=== PATIENT | male | born 1960 | race Two or more races ===

== ENCOUNTER → 2024-05-15 | Outpatient (CLI) | payer BC, OTHER, SELFPAY ==
[2024-05-15 08:39] LABS: Glucose Estimated Average 169 mg/dL (80-131); Hemoglobin A1C 7.5 % Hgb (4.8-6.0)
[2024-05-15 08:47] LABS: Anion Gap 5 (7-16); BUN/Creatinine Ratio 17 Ratio (12-20); Blood Urea Nitrogen 17 mg/dL (9-23); Carbon Dioxide 27.2 mMol/L (20.0-31.0); Cardiac Risk Estimate 3.5 RATIO (4.0-6.7); Chloride 102 mMol/L (98-107); Cholesterol 92 mg/dL (132-200); Glucose 155 mg/dL (74-106); HDL Cholesterol 26 mg/dL (40-60); LDL Cholesterol,Calculated 49 mg/dL (0-130); Osmolality,Calculated 272 (275-295); Sodium 134 mMol/L (136-145); Triglycerides 85 mg/dL (30-150); eGFR > 60 See Note
== END | disposition home or self-care (01) ==
PROVIDERS: PCP Physician Assistant; Referring Provider Internal Medicine Endocrinology, Diabetes & Metabolism; Visit Provider Internal Medicine Endocrinology, Diabetes & Metabolism
DX: E11.9 Type 2 diabetes mellitus without complications (principal)
CPT/HCPCS: 36415; 80048; 80061; 83036

== ENCOUNTER 2024-06-14 01:53 | Emergency (ER) | payer BC, OTHER, SELFPAY ==
[2024-06-14 01:54] VITALS: BMI 25.7
--- NOTE | 2024-06-14 01:55 | EKG_ITS ---
[facility] Test Date: 2024-06-14 Pat Name: LATRELL CEJA Department: Room: - Gender: Male Md Urologist: : 1960 Requested By: ED Temporary Provider Order Number: [id number] Reading MD: ED Temporary Provider Measurements Intervals [place] Rate: 80 P: 62 AL: 184 QRS: 85 QRSD: 100 T: 55 QT: 367 QTc: 425 Interpretive Statements SINUS RHYTHM WITH FREQUENT SUPRAVENTRICULAR PREMATURE COMPLEXES ABNORMAL RHYTHM ECG Compared to ECG 05/12/2020 13:13:50 No significant changes /store/S0/[id number].pdf
[2024-06-14 01:59] VITALS: BP 126/77; PULSE 61; RESP 18; TEMP 36.6; O2SAT 98
--- NOTE | 2024-06-14 02:48 | XR_ITS ---
Examination: PA chest single view TECHNIQUE: Upright PA chest single view Exam date and time: June 14, 2024 0257 hours INDICATIONS: Shortness of breath cardiac palpitations today. FINDINGS: Comparison May 28, 2021 Normal heart size No pneumonia or pulmonary edema IMPRESSION: No active disease
[2024-06-14 03:32] LABS: Basophils # (Auto) 0.1 Thou/mm3 (0.0-0.2); Basophils % (Auto) 1 % (0-2.5); Eosinophils # (Auto) 0.3 Thou/mm3 (0.0-0.5); Eosinophils % (Auto) 4 % (0-10); Hemoglobin 14.6 g/dL (13.5-16.0); Immature Granulocytes % (Auto) 0 % (0-0); Immature Granulocytes Auto 0.03 Thou/mm3 (0.00-0.00); Lymphocytes # (Auto) 1.6 Thou/mm3 (1.0-4.8); Lymphocytes % (Auto) 24 % (10-50); Mean Corpuscular HGB Conc 32.4 g/dl (31.0-37.0); Mean Corpuscular Hemoglobin 29.2 pg (25.0-35.0); Mean Corpuscular Volume 90 fL (80-100); Monocytes # (Auto) 0.6 Thou/mm3 (0.0-0.8); Monocytes % (Auto) 9 % (0-12); Neutrophils # (Auto) 4.1 Thou/mm3 (1.8-7.7); Neutrophils % (Auto) 61 % (37-80); Nucleated Red Blood Cell % 0 /100 WBC (0); Platelet Count 211 Thou/mm3 (140-440); RDW Standard Deviation 44.4 fL (35.1-43.9); White Blood Count 6.7 Thou/mm3 (3.8-10.6)
[2024-06-14 03:42] LABS: Amphetamine/Methamp Scrn,U Negative (Negative); Barbiturate Screen,Urine Negative (Negative); Benzodiazepines Screen,Urine Negative (Negative); Benzoylecgonine Screen, Ur Negative (Negative); Fentanyl Screen,Urine Negative (Negative); Opiate Screen,Urine Negative (Negative); THC Screen,Urine Negative (Negative)
[2024-06-14 03:49] LABS: B-Type Natriuretic Peptide < 20 pg/mL (0-100)
[2024-06-14 03:50] LABS: D-Dimer < 250 ng/mL (<600)
[2024-06-14 03:51] LABS: Alanine Aminotransferase 25 U/L (10-49); Albumin, Serum 4.7 gm/dL (3.4-4.8); Albumin/Globulin Ratio 2.4 (1.2-2.2); Alkaline Phosphatase 107 U/L (46-116); Anion Gap 5 (7-16); Aspartate Amino Transferase 16 U/L (0-34); BUN/Creatinine Ratio 18 Ratio (12-20); Bilirubin,Total 0.3 mg/dL (0.3-1.2); Blood Urea Nitrogen 22 mg/dL (9-23); Carbon Dioxide 28.8 mMol/L (20.0-31.0); Chloride 100 mMol/L (98-107); Creatinine (Component) 1.2 mg/dL (0.6-1.3); Estimated Creatinine Clearance 70.1 mL/min (>60); Glucose 199 mg/dL (74-106); Magnesium 1.9 mg/dL (1.6-2.6); Osmolality,Calculated 277 (275-295); Potassium 4.5 mMol/L (3.4-5.1); Sodium 134 mMol/L (136-145); Total Protein 6.7 gm/dL (5.7-8.2); Troponin I < 0.002 ng/mL (0.0-0.045); eGFR > 60 See Note
[2024-06-14 04:07] VITALS: BP 108/63; PULSE 78; RESP 17; TEMP 36.8; O2SAT 97
[2024-06-14 04:43] VITALS: RESP 18
--- NOTE | 2024-06-14 05:44 | PD.EDARRY ---
ED Arrhythmia Palp. RME/HPI General Chief Complaint: Arrhythmia/Palpitations Stated Complaint: PALPITATIONS,SOB Time Seen by Provider: 06/14/24 02:48 Arrival date/time: 06/14/24 01:53 64M with history of DM presents to ED with 2 days of intermittent heart palps and SOB. Patient denies weakness and CP. Patient had normal heart cath and stress test about 5 years ago. Limitations: no limitations Related Data Home Medications ?Medication ?Instructions ?Recorded ?Confirmed amitriptyline 50 mg tablet 50 mg PO QDAY 11/26/18 02/22/19 aspirin 81 mg chewable tablet 81 mg PO QDAY 11/26/18 02/22/19 atorvastatin 40 mg tablet 40 mg PO HS 11/26/18 02/22/19 cetirizine 10 mg tablet (Zyrtec) 10 mg PO QDAY 11/26/18 02/22/19 dapagliflozin propanediol 10 mg 10 mg PO QDAY 11/26/18 02/22/19 tablet (Farxiga) glipizide 10 mg tablet 5 mg PO DAILY 11/26/18 02/22/19 ibuprofen 600 mg tablet 600 mg PO Q6H PRN Pain 11/26/18 02/22/19 insulin glargine U-300 conc 300 30 unit subcut QDAY 11/26/18 02/22/19 unit/mL (1.5 mL) subcutaneous pen (Touvjo SoloStar U-300 Insulin) liraglutide 0.6 mg/0.1 mL (18 mg/3 1.2 units subcut DAILY 11/26/18 02/22/19 mL) subcutaneous pen injector (Victoza 2-Aly) lisinopril 10 mg tablet 10 mg PO QDAY 11/26/18 02/22/19 metformin 1,000 mg tablet 1,000 mg PO BID 11/26/18 02/22/19 rizatriptan 10 mg tablet 10 mg PO Q2H PRN Migraine Headache 11/26/18 02/22/19 topiramate 100 mg tablet 100 mg PO HS 11/26/18 02/22/19 albuterol sulfate 90 mcg/actuation 2 puff inhalation Q6H PRN Wheezing 12/18/18 02/22/19 aerosol inhaler beclomethasone dipropionate 80 1 puff inhalation BID PRN Wheezing 12/18/18 02/22/19 mcg/actuation HFA breath activated aerosol (Qvar RediHaler) tamsulosin 0.4 mg capsule 0.4 mg PO QDAY 02/22/19 02/22/19 Previous Rx's ?Medication ?Instructions ?Recorded hydrocodone 5 mg-acetaminophen 325 1 tab PO BID PRN pain #10 tabs 02/22/19 mg tablet ([place]) ibuprofen 800 mg tablet 800 mg PO TID PRN pain #30 tabs 02/22/19 Allergies Allergy/AdvReac Type Severity Reaction Status Date / Time No Known Allergies Allergy Verified 06/14/24 01:55 Review of Systems Review of Systems Systems Reviewed: All systems reviewed, normal except as documented Constitutional Constitutional: Reports system reviewed and no additional complaints, except as documented, Denies fever(s) and Denies headache(s) ENT Ears, Nose, Mouth, and Throat: Denies disequilibrium and Denies headache(s) Cardiovascular Cardiovascular: Reports system reviewed and no additional complaints, except as documented, Reports as per HPI, Denies chest pain, Reports dyspnea and Reports irregular heart rhythm Respiratory Respiratory: Reports system reviewed and no additional complaints, except as documented, Reports as per HPI, Denies cough and Reports dyspnea Gastrointestinal Gastrointestinal: Reports system reviewed and no additional complaints, except as documented, Denies abdominal pain, Denies nausea and Denies vomiting Neurologic Neurologic: Reports system reviewed and no additional complaints, except as documented, Denies confusion, Denies disequilibrium and Denies headache(s) Psychiatric Psychiatric: Denies confusion Past Medical History Past Medical History NEUROLOGIC: Positive Migraine (TAKES MEDS); Negative Neurological Disorders or Seizures CARDIAC: Positive Cardiac Disorders, Hypercholesterolemia and Hypertension; Negative Congestive Heart Failure RESPIRATORY: Positive Asthma and Sleep Apnea; Negative Chronic Obstructive Pulmonary Disease (COPD) GASTROINTESTINAL: Negative Gastrointestinal Disorders GENITOURINARY: Negative Genitourinary Disorders or Renal Disease MUSCULOSKELETAL: Positive Musculoskeletal Disorders, Arthritis and Degenerative Disk Disease ENDOCRINE: Positive Endocrine Disorders and Diabetes Mellitus Type 2; Negative Diabetes Mellitus Type 1 HEMATOLOGIC: Negative Blood Disorders OTHER HISTORY: Positive Hospitalization and Mumps; Negative Autoimmune Disease, Shingles or Falls Family History FAMILY HISTORY: Positive Family Psychiatric Problems, Family Cardiac Disorders and Family Surgery; Negative Family Respiratory Disorders, Family Gastrointestinal Problems, Family Cancer or Family Anesthesia Reaction Surgical History SURGICAL: Positive Angiogram, Arthroscopy and Vasectomy Social History SMOKING STATUS: Former smoker ED Exam General Limitations: Present no limitations General appearance: Present alert and in no apparent distress Head Head exam: Present atraumatic Eye Eye exam: Present normal appearance, PERRL and EOMI ENT ENT exam: Present normal exam, normal oropharynx and mucous membranes moist Neck Neck exam: Present normal inspection, full ROM and trachea midline Chest Chest inspection: Present normal inspection and symmetric chest wall rise Respiratory Respiratory exam: Present normal lung sounds bilaterally Cardiovascular Cardiovascular exam: Present regular rate, normal rhythm and normal heart sounds Abdominal Exam Abdominal exam: Present soft and normal bowel sounds Extremities Exam Extremities exam: Present normal inspection and full ROM Back Exam Back exam: Present normal inspection and full ROM Neurological Exam Neurological exam: Present alert, oriented X3 and CN II-XII intact Psychiatric Psychiatric exam: Present normal affect and normal mood Skin Skin exam: Present warm, dry, intact and normal color Course Quality Measures none Orders Category Date Time Status EKG (ED ONLY) *Do not use* NOW Care 06/14/24 01:56 Completed EKG (ED Only) Stat Exams 06/14/24 01:55 Draft XR chest 1V portable Stat Exams 06/14/24 02:48 Taken B-Type Natriuretic Peptide Stat Lab 06/14/24 03:18 Completed CBC Stat Lab 06/14/24 03:18 Completed Comprehensive Metabolic Panel Stat Lab 06/14/24 03:18 Completed D-Dimer Stat Lab 06/14/24 03:18 Completed Drug Screen,Urine Stat Lab 06/14/24 03:04 Completed Magnesium Stat Lab 06/14/24 03:18 Completed Troponin I Stat Lab 06/14/24 03:18 Completed Vital Signs Vital signs: Vital Signs Temperature 97.8 F 06/14/24 01:59 Pulse Rate 61 06/14/24 01:59 Respiratory Rate 18 06/14/24 01:59 Blood Pressure 126/77 06/14/24 01:59 Pulse Oximetry (%) 98 06/14/24 01:59 Oxygen Delivery Method Room Air 06/14/24 01:59 Arrhythmia/Palpitations MDM Narrative MDM Narrative:: 64M with history of DM presents to ED with 2 days of intermittent heart palps and SOB. Patient denies weakness and CP. Patient had normal heart cath and stress test about 5 years ago. Physical exam reveals clear ENT and lungs. Premature heart beats. Patient is afebrile, calm, and alert. EKG reveals PACs. Normal BNP, Mag, trop and D-dimer. Wet CXR read unremarkable pending official report. Tox screen normal. Patient felt better after several hours of observation. Counseled to follow-up with cardiology. Patient data External records reviewed:: [facility] previous records Clinical information provided by:: patient Social determinants that could affect healthcare access:: none Patient has the following chronic illnesses:: DM How is presenting disease/condition affected by chronic disease/condition?: exacerbated by Evaluation data The following diagnostics were reviewed and interpreted by me:: lab results, radiology exam(s) and EKG tracing(s) Lab and/or radiology exams considered but not ordered:: ordered Interpretation Summary: above Medications / Prescriptions Medications or Prescriptions considered but not ordered:: not ordered Medication administrations:: n/a Consultations Consultation(s) initiated? (list below): No Diagnosis Differential diagnosis arrhythmia/palpitations: palpitations, anxiety, sinus tachycardia, artial fibrillation, artial flutter, ventricular premature beats, supraventricular tachycardia, ventricular tachycardia and WPW Most likely diagnosis given after review of the tests above:: premature supraventricular beats Admission Indicated Admission indicated?: not indicated Admission Request Was there a request for admission?: No Disposition Plan Disposition Plan: Discharge Discharge Attestation Discharge Attestation: The patient and all family members were given an opportunity to ask questions and understood the discharge instructions. Discharge instructions specifically effects, indications for sooner follow up or return to the emergency department, and the expected course of current diagnosis. Patient condition: Stable Discharge Plan Plan Patient Disposition: HOME (Self Care) Disposition Comment: Stable Prescriptions/Referrals Prescriptions/Med Rec: No Action atorvastatin 40 mg Tablet 40 mg PO HS cetirizine [Zyrtec] 10 mg Tablet 10 mg PO QDAY glipizide 10 mg Tablet 5 mg PO DAILY rizatriptan 10 mg Tablet 10 mg PO Q2H PRN (Reason: Migraine Headache) amitriptyline 50 mg Tablet 50 mg PO QDAY metformin 1,000 mg Tablet 1,000 mg PO BID lisinopril 10 mg Tablet 10 mg PO QDAY aspirin 81 mg Tablet,Chewable 81 mg PO QDAY ibuprofen 600 mg Tablet 600 mg PO Q6H PRN (Reason: Pain) topiramate 100 mg Tablet 100 mg PO HS Victoza 2-Aly 0.6 mg/0.1 mL (18 mg/3 mL) Pen Injector 1.2 units SUBCUT DAILY Farxiga 10 mg Tablet 10 mg PO QDAY Howard Young U-300 Insulin 300 unit/mL (1.5 mL) Insulin Pen 30 unit SUBCUT QDAY albuterol sulfate 90 mcg/actuation Hfa Aerosol Inhaler 2 puff INHALATION Q6H PRN (Reason: Wheezing) Qvar RediHaler 80 mcg/actuation Hfa Aerosol Breath Activated 1 puff INHALATION BID PRN (Reason: Wheezing) tamsulosin 0.4 mg Capsule 0.4 mg PO QDAY ibuprofen 800 mg tablet 800 mg PO TID PRN (Reason: pain) Qty: 30 0RF hydrocodone-acetaminophen [[place]] 5-325 mg tablet 1 tab PO BID MDD 3 tabs PRN (Reason: pain) Qty: 10 0RF Referrals: Diane Savage PA-C [Primary Care Provider] - In 1 week Problem List Clinical Impression: Premature supraventricular beats Patient/Caregiver Discharge Instructions Education Materials: Your Heart's Electrical System, ED About Arrhythmias Additional Instructions: Please follow-up with PCP within 24-48 hours and return immediately if symptoms worsen. Follow-up with cardiology for additional evaluation. Print Language: Bruneian Stand Alone Forms: Patient Portal Info Letter SANTA/KODY Supervising Physician CANDI Supervising Physician: Dr. Booth
== END 2024-06-14 04:43 | disposition home or self-care (01) ==
PROVIDERS: Physician Assistant; Emergency Provider Emergency Medicine; PCP Physician Assistant
DX: I49.1 Atrial premature depolarization (principal); E11.9 Type 2 diabetes mellitus without complications
CPT/HCPCS: 36415; 71045; 80053; 80307; 83735; 83880; 84484; 85025; 85379; 93005; 99283

== ENCOUNTER → 2024-11-04 | Outpatient (CLI) | payer BC, OTHER, SELFPAY ==
[2024-11-04 16:37] LABS: Glucose Estimated Average 169 mg/dL (80-131); Hemoglobin A1C 7.5 % Hgb (4.8-6.0)
[2024-11-04 16:39] LABS: Alanine Aminotransferase 22 U/L (10-49); Albumin, Serum 4.2 gm/dL (3.4-4.8); Albumin/Globulin Ratio 1.8 (1.2-2.2); Alkaline Phosphatase 90 U/L (46-116); Anion Gap 9 (7-16); Aspartate Amino Transferase 25 U/L (0-34); BUN/Creatinine Ratio 15 Ratio (12-20); Bilirubin,Total 0.3 mg/dL (0.3-1.2); Blood Urea Nitrogen 18 mg/dL (9-23); Calcium 8.9 mg/dL (8.3-10.6); Calcium (Corrected) 8.9 mg/dL (8.5-10.1); Carbon Dioxide 26.1 mMol/L (20.0-31.0); Chloride 103 mMol/L (98-107); Creatinine (Component) 1.2 mg/dL (0.6-1.3); Globulin 2.3 gm/dL (2.3-3.5); Glucose 195 mg/dL (74-106); Osmolality,Calculated 282 (275-295); Potassium 4.3 mMol/L (3.4-5.1); Sodium 138 mMol/L (136-145); Total Protein 6.5 gm/dL (5.7-8.2); eGFR > 60 See Note
== END | disposition home or self-care (01) ==
LOC: COPL 15:48
PROVIDERS: PCP Registered Nurse; Referring Provider Registered Nurse; Visit Provider Registered Nurse
DX: E11.65 Type 2 diabetes mellitus with hyperglycemia (principal)
CPT/HCPCS: 36415; 80053; 83036

== ENCOUNTER → 2025-01-06 | Outpatient (CLI) | payer BC, OTHER, SELFPAY ==
--- NOTE | 2025-01-06 09:37 | XR_ITS ---
Examination: CT abdomen and pelvis without contrast. Coronal 3-D reconstructions. Sagittal 2-D reconstructions. Date and time of exam:January 06, 2025 1113 hours COMPARISON: 02/22/2019 INDICATIONS: Onset hematuria beginning one week ago CTDI: vol (mGy): 8.71 DLP: (mGycm): 529 Technique: Axial images of the abdomen have been obtained, 3 mm slice thickness Intravenous contrast material has not been administered. Low dose protocols were performed. One or more of the following dose reduction techniques were used; automated exposure control, adjustment of the mA and/or KV according to patient size, use of iterative reconstruction technique. Findings: No focal liver or splenic lesions No gallstones No pancreatic or adrenal mass No renal or ureteral calculi, no hydronephrosis Aorta normal size No bowel obstruction Normal appendix Colonic diverticulosis, no diverticulitis Abnormal prostate, significant prostatomegaly, AP dimension 6.3 cm with markedly irregular contour of the prostate and 14 mm lateral right prostate nodule versus cyst Advanced disc narrowing L4-L5 IMPRESSION: No renal or ureteral calculi, no hydronephrosis Abnormal prostate, significantly enlarged with markedly irregular contour 14 mm lateral right prostate nodule versus cyst Consider transrectal prostate sonography follow-up
[2025-01-06 10:25] LABS: Collection Type, Urine Clean Catch
[2025-01-06 10:48] LABS: Basophils # (Auto) 0.1 Thou/mm3 (0.0-0.2); Basophils % (Auto) 1 % (0-2.5); Eosinophils # (Auto) 0.2 Thou/mm3 (0.0-0.5); Eosinophils % (Auto) 4 % (0-10); Hematocrit 46.2 % (41.0-53.0); Hemoglobin 14.8 g/dL (13.5-16.0); Immature Granulocytes Auto 0.02 Thou/mm3 (0.00-0.00); Lymphocytes # (Auto) 1.6 Thou/mm3 (1.0-4.8); Lymphocytes % (Auto) 25 % (10-50); Mean Corpuscular HGB Conc 32.0 g/dl (31.0-37.0); Mean Corpuscular Hemoglobin 28.6 pg (25.0-35.0); Mean Corpuscular Volume 89 fL (80-100); Monocytes # (Auto) 0.5 Thou/mm3 (0.0-0.8); Monocytes % (Auto) 8 % (0-12); Neutrophils # (Auto) 3.8 Thou/mm3 (1.8-7.7); Neutrophils % (Auto) 62 % (37-80); Nucleated Red Blood Cell # 0.00 Thou/mm3 (0.00-0.00); Nucleated Red Blood Cell % 0 /100 WBC (0); Platelet Count 207 Thou/mm3 (140-440); RDW Standard Deviation 47.2 fL (35.1-43.9); Red Blood Count 5.17 Miln/mm3 (4.50-5.90); White Blood Count 6.1 Thou/mm3 (3.8-10.6)
[2025-01-06 10:52] LABS: Prostate Specific Antigen 3.26 ng/mL (0-4.00)
[2025-01-06 10:57] LABS: Alanine Aminotransferase 19 U/L (10-49); Albumin, Serum 4.2 gm/dL (3.4-4.8); Albumin/Globulin Ratio 2.2 (1.2-2.2); Alkaline Phosphatase 69 U/L (46-116); Anion Gap 12 (7-16); Aspartate Amino Transferase 36 U/L (0-34); BUN/Creatinine Ratio 17 Ratio (12-20); Bilirubin,Total 0.5 mg/dL (0.3-1.2); Blood Urea Nitrogen 19 mg/dL (9-23); Calcium 9.2 mg/dL (8.3-10.6); Calcium (Corrected) 9.2 mg/dL (8.5-10.1); Carbon Dioxide 23.4 mMol/L (20.0-31.0); Chloride 103 mMol/L (98-107); Creatinine (Component) 1.1 mg/dL (0.6-1.3); Globulin 1.9 gm/dL (2.3-3.5); Glucose 138 mg/dL (74-106); Osmolality,Calculated 279 (275-295); Potassium 4.6 mMol/L (3.4-5.1); Sodium 138 mMol/L (136-145); Total Protein 6.1 gm/dL (5.7-8.2); eGFR > 60 See Note
[2025-01-06 11:05] LABS: Bilirubin,Urine Negative (Negative); Blood,Urine 2+ (Negative); Clarity,Urine Clear (Clear/Hazy); Color,Urine Yellow (Lt Yel-Yel); Glucose, Urine 1+ (Negative); Ketones,Urine Negative (Negative); Leukocyte Esterase,Urine Negative (Negative); Nitrite,Urine Negative (Negative); PH,Urine 5.5 (5.0-7.0); Protein,Urine Trace (Neg - Trace); RBC,Urine 5 /hpf (0-3); Specific Gravity,Urine 1.023 (1.001-1.035); Squamous Epithelial Cell,Urine < 1 /hpf (0-5); Urobilinogen,Urine Negative mg/dL (0.0-1.0); WBC,Urine 1 /hpf (0-5)
== END | disposition home or self-care (01) ==
PROVIDERS: PCP Family Medicine; Referring Provider Registered Nurse; Visit Provider Registered Nurse
DX: N40.0 Benign prostatic hyperplasia without lower urinary tract symptoms (principal)
CPT/HCPCS: 36415; 74176; 80053; 81001; 84153; 84403; 85025; 87086

== ENCOUNTER → 2025-03-10 | Outpatient (CLI) | payer OTHER, SELFPAY ==
--- NOTE | 2025-03-10 16:34 | XR_ITS ---
EXAMINATION: Cervical spine, 5 views Technique: Cervical spine AP, AP odontoid, lateral, bilateral obliques, 5 views Exam date and time: March 10, 2025 1643 hrs., Comparison January 02, 2022 Indications: Neck surgery 4 years ago with worsening stiffness and pain 3 months Findings: Prominent osteopenia. No cervical fracture. Intact odontoid. Straightening of the normal cervical lordosis. Disc spacers C5-C6, C6-C7 Early degenerative disc disease C3-C4 Mild cervical spondylosis Mild diffuse bilateral neural foraminal stenosis Cervical thoracic levoscoliosis 12 degrees Incidental note significant soft tissue right carotid calcification Impression: Disc spacers C5-C6, C6-C7 with satisfactory alignment Early degenerative disc disease C3-C4
[2025-03-10 17:07] LABS: Glucose Estimated Average 177 mg/dL (80-131); Hemoglobin A1C 7.8 % Hgb (4.8-6.0)
[2025-03-10 17:09] LABS: Alanine Aminotransferase 21 U/L (10-49); Albumin, Serum 4.1 gm/dL (3.4-4.8); Albumin/Globulin Ratio 2.0 (1.2-2.2); Alkaline Phosphatase 85 U/L (46-116); Anion Gap 8 (7-16); Aspartate Amino Transferase 26 U/L (0-34); BUN/Creatinine Ratio 13 Ratio (12-20); Bilirubin,Total 0.3 mg/dL (0.3-1.2); Blood Urea Nitrogen 13 mg/dL (9-23); Calcium 9.6 mg/dL (8.3-10.6); Calcium (Corrected) 9.6 mg/dL (8.5-10.1); Carbon Dioxide 24.6 mMol/L (20.0-31.0); Chloride 106 mMol/L (98-107); Creatinine (Component) 1.0 mg/dL (0.6-1.3); Globulin 2.1 gm/dL (2.3-3.5); Glucose 134 mg/dL (74-106); Osmolality,Calculated 279 (275-295); Potassium 4.2 mMol/L (3.4-5.1); Sodium 139 mMol/L (136-145); Total Protein 6.2 gm/dL (5.7-8.2); eGFR > 60 See Note
== END | disposition home or self-care (01) ==
LOC: COPL 16:15
PROVIDERS: PCP Registered Nurse; Referring Provider Registered Nurse; Visit Provider Radiology Diagnostic Radiology
DX: M50.31 Other cervical disc degeneration, high cervical region (principal); E11.65 Type 2 diabetes mellitus with hyperglycemia
CPT/HCPCS: 36415; 72050; 80053; 83036

== ENCOUNTER 2025-04-22 15:24 | Emergency (ER) | payer OTHER, SELFPAY ==
[2025-04-22 15:26] VITALS: BP 110/75; PULSE 89; RESP 18; TEMP 36.8; O2SAT 96
[2025-04-22 15:40] VITALS: PULSE 88; BMI 27.1
--- NOTE | 2025-04-22 16:31 | PD.EDMALE ---
ED Male Genitalurinary RME/HPI General Chief complaint: Urogenital-Male Stated complaint: PAINFUL URINATION Time Seen by Provider: 04/22/25 16:18 Arrival date/time: 04/22/25 15:24 RME / HPI RME / HPI Narrative: 65 year old male with history of hypertension, diabetes, BPH with TURP presents to the ED for evaluation of penile pain and painful urination today. Patient states he underwent TURP 1 week ago and today had the hernnádez catheter removed at urologist Dr. Mcneil's office. States in the office he had no penile pain. However, since arriving home had urinated twice and both times described feeling a 10/10 burning sensation in his penis. States the second time he urinated he felt very light headed and called out for his son who assisted him down to the floor. Per at bedside, the son stated patient had lost consciousness for several seconds. Patient additionally reports after TURP he was given Bactrim which he took for 2 days. Patient additionally reports the day he began the Bactrim he developed blistering inside of his mouth, lips, and penis. Consulted with his casino operations supervisor who prescribed a topical steroid cream for lips and penis which he has used. Denies fevers, chills, sweats. Related Data Home Medications ?Medication ?Instructions ?Recorded ?Confirmed amitriptyline 50 mg tablet 50 mg PO QDAY 11/26/18 02/22/19 aspirin 81 mg chewable tablet 81 mg PO QDAY 11/26/18 02/22/19 atorvastatin 40 mg tablet 40 mg PO HS 11/26/18 02/22/19 cetirizine 10 mg tablet (Zyrtec) 10 mg PO QDAY 11/26/18 02/22/19 dapagliflozin propanediol 10 mg 10 mg PO QDAY 11/26/18 02/22/19 tablet (Farxiga) glipizide 10 mg tablet 5 mg PO DAILY 11/26/18 02/22/19 ibuprofen 600 mg tablet 600 mg PO Q6H PRN Pain 11/26/18 02/22/19 insulin glargine U-300 conc 300 30 unit subcut QDAY 11/26/18 02/22/19 unit/mL (1.5 mL) subcutaneous pen (Howard Young U-300 Insulin) liraglutide 0.6 mg/0.1 mL (18 mg/3 1.2 units subcut DAILY 11/26/18 02/22/19 mL) subcutaneous pen injector ([employer] 2-Aly) lisinopril 10 mg tablet 10 mg PO QDAY 11/26/18 02/22/19 metformin 1,000 mg tablet 1,000 mg PO BID 11/26/18 02/22/19 rizatriptan 10 mg tablet 10 mg PO Q2H PRN Migraine Headache 11/26/18 02/22/19 topiramate 100 mg tablet 100 mg PO HS 11/26/18 02/22/19 albuterol sulfate 90 mcg/actuation 2 puff inhalation Q6H PRN Wheezing 12/18/18 02/22/19 aerosol inhaler beclomethasone dipropionate 80 1 puff inhalation BID PRN Wheezing 12/18/18 02/22/19 mcg/actuation HFA breath activated aerosol (Qvar RediHaler) tamsulosin 0.4 mg capsule 0.4 mg PO QDAY 02/22/19 02/22/19 Previous Rx's ?Medication ?Instructions ?Recorded hydrocodone 5 mg-acetaminophen 325 1 tab PO BID PRN pain #10 tabs 02/22/19 mg tablet (Mcrae) ibuprofen 800 mg tablet 800 mg PO TID PRN pain #30 tabs 02/22/19 Allergies Allergy/AdvReac Type Severity Reaction Status Date / Time No Known Allergies Allergy Verified 06/14/24 01:55 Review of Systems Review of Systems Systems Reviewed: All systems reviewed, normal except as documented Past Medical History Past Medical History NEUROLOGIC: Positive Migraine CARDIAC: Positive Cardiac Disorders, Hypercholesterolemia and Hypertension RESPIRATORY: Positive Asthma and Sleep Apnea MUSCULOSKELETAL: Positive Musculoskeletal Disorders, Arthritis and Degenerative Disk Disease ENDOCRINE: Positive Endocrine Disorders and Diabetes Mellitus Type 2 OTHER HISTORY: Positive Hospitalization and Mumps Family History FAMILY HISTORY: Positive Family Psychiatric Problems, Family Cardiac Disorders and Family Surgery Surgical History SURGICAL: Positive Angiogram, Arthroscopy and Vasectomy Social History SMOKING STATUS: Former smoker ED Exam Narrative Physical exam: GENERAL APPEARANCE: alert and oriented x 4, well-developed, well-nourished, no acute distress HEENT: Normocephalic, atraumatic; pupils equal, round, reactive to light; EOMI; mucous membranes pink, moist; blistering to the lower lip, no lesions on tongue or mucousa of mouth; oropharynx clear NECK: Supple LUNGS: CTABL; no wheezes, no rales, no rhonchi HEART: Regular rate, regular rhythm; normal S1, S2; no murmurs ABDOMEN: non distended; normal BS; soft, no tenderness, no guarding, no rebound; no masses, no organomegaly, no hernia : There is skin erosion the glans of penis BACK: no CVA tenderness EXTREMITIES: atraumatic; no edema NEUROLOGIC: awake; alert and oriented x4; cranial nerves II-XII grossly intact; no focal sensory or motor deficits PSYCHIATRIC: appropriate mood and affect SKIN: warm, dry, normal color; no rashes Course Course Course Narrative: 1726: Patient had a syncopal episode after urinating. Also noted to be vomiting. Ordered 4mg Zofran, 2L IVF, and 1mg Ativan. 1800: Patient signed out to Dr. Villa pending labs and final disposition. Quality Measures none Orders Category Date Time Status EKG (ED ONLY) *Do not use* NOW Care 04/22/25 18:20 Completed Hernández [Urinary Catheter] QS Care 04/22/25 20:38 Completed EKG (ED Only) Stat Exams 04/22/25 18:20 Draft XR chest 1V portable Stat Exams 04/22/25 19:55 Completed CBC Stat Lab 04/22/25 17:00 Completed CMP [Comprehensive Metabolic Panel] Stat Lab 04/22/25 17:00 Completed UA, C/S IF [Urinalysis, C/S if Indicated] Stat Lab 04/22/25 18:52 Completed Urine Culture Stat Lab 04/22/25 18:52 Received Dexamethasone Inj [Decadron Inj] Med 04/22/25 20:38 Discontinued 10 mg IVP X1 ONE HYDROmorphone INJ [Dilaudid Inj] Med 04/22/25 20:38 Discontinued 1 mg IVP X1 ONE LORazepam [Ativan Inj] Med 04/22/25 17:37 Discontinued 1 mg IVP X1 ONE LORazepam [Ativan Inj] Med 04/22/25 17:29 Discontinued 2 mg IVP X1 ONE Lidocaine 2% Viscous [Xylocaine 2% Viscous] Med 04/22/25 16:32 Discontinued 15 ml PO X1 ONE Lidocaine 2% Viscous [Xylocaine 2% Viscous] Med 04/22/25 20:38 Discontinued 15 ml TOP X1 ONE Lidocaine Jelly 2% Urojet [Xylocaine Jelly 2% Urojet] Med 04/22/25 16:31 Discontinued See Dose Instructions TOP X1 ONE Ondansetron Inj [Zofran Inj] Med 04/22/25 17:29 Discontinued 4 mg IVP X1 ONE Sodium Chloride 0.9% 1000 ml [Ns] 1,000 ml Med 04/22/25 17:29 Discontinued IV 999 mls/hr Sodium Chloride 0.9% 1000 ml [Ns] 1,000 ml Med 04/22/25 17:31 Discontinued IV 999 mls/hr Vital Signs Vital signs: Vital Signs Temperature 98.3 F 04/22/25 15:26 Pulse Rate 89 04/22/25 15:26 Respiratory Rate 18 04/22/25 15:26 Blood Pressure 110/75 04/22/25 15:26 Pulse Oximetry (%) 96 04/22/25 15:26 Oxygen Delivery Method Room Air 04/22/25 15: Pulse ox is 96% on room air which is adequate. Urogenital - Male MDM Narrative MDM Narrative:: Lyly Verduzco am scribing for and in the presence of Dr. Louis. Patient data External records reviewed:: [facility] Clinical information provided by:: patient Social determinants that could affect healthcare access:: none Patient has the following chronic illnesses:: hypertension, diabetes, BPH with TURP TURP performed 1 week ago How is presenting disease/condition affected by chronic disease/condition?: exacerbated by Evaluation data The following diagnostics were reviewed and interpreted by me:: lab results (Ordered and are pending during sing out) Lab and/or radiology exams considered but not ordered:: None Interpretation Summary: WBC 11.1 otherwise CBC is unremarkable CMP and UA are pending Medications / Prescriptions Medications or Prescriptions considered but not ordered:: None Medication administrations:: Medication Administration History Discontinued Medications Dexamethasone Sodium Phosphate (Dexamethasone Sod Phos Inj 10 Mg/Ml Vial) 10 mg IVP X1 ONE Stop: 04/22/25 20:39 Last Admin: 04/22/25 20:49 Dose: 10 mg Documented By: CARROL Hydromorphone HCl (Hydromorphone Inj 2 Mg/Ml Vial) 1 mg IVP X1 ONE Stop: 04/22/25 20:39 Last Admin: 04/22/25 20:49 Dose: 1 mg Documented By: CARROL Sodium Chloride (Ns) 1,000 mls @ 999 mls/hr IV .Q1H1M ONE Stop: 04/22/25 18:29 Last Infusion: 04/22/25 19:33 Dose: Infused Documented By: Admin: 04/22/25 17:35 Dose: 999 mls/hr Documented By: VG Sodium Chloride (Ns) 1,000 mls @ 999 mls/hr IV .Q1H1M ONE Stop: 04/22/25 18:31 Last Infusion: 04/22/25 19:34 Dose: Infused Documented By: Admin: 04/22/25 17:36 Dose: 999 mls/hr Documented By: VG Lidocaine HCl (Lidocaine Jelly 2% (Urojet) 10 Ml Tube) 0 ml TOP X1 ONE Stop: 04/22/25 16:32 Last Admin: 04/22/25 17:40 Dose: 10 ml Documented By: ED Lidocaine HCl (Lidocaine Viscous 2% 15 Ml Udc) 15 ml PO X1 ONE Stop: 04/22/25 16:33 Last Admin: 04/22/25 17:40 Dose: 15 ml Documented By: ED Lidocaine HCl (Lidocaine Viscous 2% 15 Ml Udc) 15 ml TOP X1 ONE Stop: 04/22/25 20:39 Last Admin: 04/22/25 20:50 Dose: 15 ml Documented By: CARROL Lorazepam (Lorazepam 2 Mg/Ml Vial) 2 mg IVP X1 ONE Stop: 04/22/25 17:30 Last Admin: 04/22/25 17:38 Dose: Not Given Documented By: ZEUS Non-Admin Reason: Discontinued Lorazepam (Lorazepam 2 Mg/Ml Vial) 1 mg IVP X1 ONE Stop: 04/22/25 17:38 Last Admin: 04/22/25 17:39 Dose: 1 mg Documented By: ZEUS Ondansetron HCl (Ondansetron Inj 2 Mg/Ml Inj 2 Ml) 4 mg IVP X1 ONE; Protocol Stop: 04/22/25 17:30 Last Admin: 04/22/25 17:33 Dose: 4 mg Documented By: VG see above Consultations Consultation(s) initiated? (list below): No Diagnosis Urogenital Male Differential Diagnosis: urinary tract infection, acute retention of urine and other (hematuria ) Most likely diagnosis given after review of the tests above:: Syncope Hematuria Admission Indicated Admission indicated?: not indicated Explain why admission is indicated or not indicated:: Patient signed out to Dr. Villa pending final disposition. Admission Request Was there a request for admission?: No Disposition Plan Disposition Plan: other (specify) (Care signed out to Dr. Villa ) Discharge Plan Plan Patient Disposition: HOME (Self Care) Prescriptions/Referrals Prescriptions/Med Rec: No Action atorvastatin 40 mg Tablet 40 mg PO HS cetirizine [Zyrtec] 10 mg Tablet 10 mg PO QDAY glipizide 10 mg Tablet 5 mg PO DAILY rizatriptan 10 mg Tablet 10 mg PO Q2H PRN (Reason: Migraine Headache) amitriptyline 50 mg Tablet 50 mg PO QDAY metformin 1,000 mg Tablet 1,000 mg PO BID lisinopril 10 mg Tablet 10 mg PO QDAY aspirin 81 mg Tablet,Chewable 81 mg PO QDAY ibuprofen 600 mg Tablet 600 mg PO Q6H PRN (Reason: Pain) topiramate 100 mg Tablet 100 mg PO HS Victoza 2-Aly 0.6 mg/0.1 mL (18 mg/3 mL) Pen Injector 1.2 units SUBCUT DAILY Farxiga 10 mg Tablet 10 mg PO QDAY [employer] U-300 Insulin 300 unit/mL (1.5 mL) Insulin Pen 30 unit SUBCUT QDAY albuterol sulfate 90 mcg/actuation Hfa Aerosol Inhaler 2 puff INHALATION Q6H PRN (Reason: Wheezing) Qvar RediHaler 80 mcg/actuation Hfa Aerosol Breath Activated 1 puff INHALATION BID PRN (Reason: Wheezing) tamsulosin 0.4 mg Capsule 0.4 mg PO QDAY ibuprofen 800 mg tablet 800 mg PO TID PRN (Reason: pain) Qty: 30 0RF hydrocodone-acetaminophen [Mcrae] 5-325 mg tablet 1 tab PO BID MDD 3 tabs PRN (Reason: pain) Qty: 10 0RF Referrals: Mer Garner MD [Primary Care Provider, Family Practice] - In 1 week Problem List Clinical Impression: Episode of syncope, Mucosal ulcer Patient/Caregiver Discharge Instructions Additional Instructions: Follow-up with your urologist tomorrow. Attempt to get a hold of your casino operations supervisor tomorrow to discuss the possibility of early Moore-Cole syndrome secondary to the Bactrim medication. Return to ER as needed or if condition worsens. Print Language: Kinyarwanda Stand Alone Forms: Emily Award Info., Patient Portal Info Letter
[2025-04-22 17:26] LABS: Basophils # (Auto) 0.1 Thou/mm3 (0.0-0.2); Basophils % (Auto) 1 % (0-2.5); Eosinophils # (Auto) 0.6 Thou/mm3 (0.0-0.5); Eosinophils % (Auto) 5 % (0-10); Hematocrit 46.6 % (41.0-53.0); Hemoglobin 15.5 g/dL (13.5-16.0); Immature Granulocytes Auto 0.07 Thou/mm3 (0.00-0.00); Lymphocytes # (Auto) 1.7 Thou/mm3 (1.0-4.8); Lymphocytes % (Auto) 15 % (10-50); Mean Corpuscular HGB Conc 33.3 g/dl (31.0-37.0); Mean Corpuscular Hemoglobin 29.0 pg (25.0-35.0); Mean Corpuscular Volume 87 fL (80-100); Monocytes # (Auto) 0.9 Thou/mm3 (0.0-0.8); Monocytes % (Auto) 8 % (0-12); Neutrophils # (Auto) 8.1 Thou/mm3 (1.8-7.7); Neutrophils % (Auto) 71 % (37-80); Nucleated Red Blood Cell # 0.00 Thou/mm3 (0.00-0.00); Nucleated Red Blood Cell % 0 /100 WBC (0); Platelet Count 264 Thou/mm3 (140-440); RDW Standard Deviation 43.8 fL (35.1-43.9); Red Blood Count 5.34 Miln/mm3 (4.50-5.90); White Blood Count 11.5 Thou/mm3 (3.8-10.6)
--- NOTE | 2025-04-22 17:28 | PC.NURSE ---
Pt. son in [facility] yelling for a nurse, pt. not responsive, pt. sweating, pt. vomiting, Dr Louis is bedside turned pt. to left side. Suction pt., O2 placed on pt. Son stating that is exactly what happened at home when pt. tried to urinate. Blood in urinal and coming from pt.'s penis. Min. bleeding noted from pt.'s penis.
[2025-04-22] MEDS: ONDANSETRON INJ 2 MG/ML INJ 2 ML 4 MG IVP (17:33)
[2025-04-22] MEDS: SODIUM CHLORIDE 0.9% 1000 ML 1,000 ML 999 ML IV ×2 (17:35→17:36)
[2025-04-22] MEDS: LORazepam 2 MG/ML VIAL 1 MG IVP (17:39)
[2025-04-22] MEDS: LIDOCAINE VISCOUS 2% 15 ML UDC PO (17:40)
[2025-04-22] MEDS: LIDOCAINE JELLY 2% (Urojet) 10 ML TUBE TOP (17:40)
--- NOTE | 2025-04-22 17:41 | PC.NURSE ---
Pt. has his color back to his face and talking, is bedside stating pt. had a turp done on , stated this is pt.'s 2nd turp, states pt.'s prostate grew into the bladder. states pt.'s hernández was removed today and since then pt. has been struggling to urinate. Pt.'s penis is very tender to touch and has white all around the head and shaft, head has min blood coming from penis. Pt. vomited large amount with brown chunks pt. states he ate Wienersnitchel today.
--- NOTE | 2025-04-22 17:50 | PC.NURSE ---
Pt. lower lip very red and pt. states it's from the Bactrim.
[2025-04-22 17:52] VITALS: BP 120/78; PULSE 89; RESP 16; O2SAT 96
[2025-04-22 17:58] LABS: Alanine Aminotransferase 17 U/L (10-49); Albumin, Serum 4.2 gm/dL (3.4-4.8); Albumin/Globulin Ratio 2.5 (1.2-2.2); Alkaline Phosphatase 81 U/L (46-116); Anion Gap 8 (7-16); Aspartate Amino Transferase 23 U/L (0-34); BUN/Creatinine Ratio 11 Ratio (12-20); Bilirubin,Total 0.4 mg/dL (0.3-1.2); Blood Urea Nitrogen 13 mg/dL (9-23); Calcium 8.9 mg/dL (8.3-10.6); Calcium (Corrected) 8.9 mg/dL (8.5-10.1); Carbon Dioxide 24.7 mMol/L (20.0-31.0); Chloride 95 mMol/L (98-107); Creatinine (Component) 1.2 mg/dL (0.6-1.3); Estimated Creatinine Clearance 69.2 mL/min (>60); Globulin 1.7 gm/dL (2.3-3.5); Glucose 242 mg/dL (74-106); Osmolality,Calculated 265 (275-295); Potassium 4.6 mMol/L (3.4-5.1); Sodium 128 mMol/L (136-145); Total Protein 5.9 gm/dL (5.7-8.2); eGFR > 60 See Note
--- NOTE | 2025-04-22 18:20 | EKG_ITS ---
[facility] Test Date: 2025-04-22 Pat Name: LATRELL CEJA Department: Room: - Gender: Male Customer Expert: : 1960 Requested By: Lázaro Hernandes Order Number: [id number] Reading MD: Lázaro Hernandes Measurements Intervals [place] Rate: 93 P: 35 PA: 186 QRS: 77 QRSD: 95 T: 20 QT: 357 QTc: 445 Interpretive Statements SINUS RHYTHM Compared to ECG 06/14/2024 02:10:49 No significant changes /store/S0/[id number].pdf
--- NOTE | 2025-04-22 18:24 | PD.EDADDENDU ---
Emergency Room Addendum <Vandana Coffey - Last Filed: 04/22/25 18:25> Addendum Narrative: 1800: Care assumed from Dr. Louis, the previous shift emergency physician. Past medical, surgical, social and family history reviewed. Vitals and home medications reviewed. Results and treatment plan discussed. I will assume the care of the patient at this time and will follow the patient. Please refer to the emergency department record for history and examination from initial visit. <Lázaro Hernandes VillaDO - Last Filed: 04/22/25 21:18> Addendum Narrative: 1800: Care assumed from Dr. Louis, the previous shift emergency physician. Past medical, surgical, social and family history reviewed. Vitals and home medications reviewed. Results and treatment plan discussed. I will assume the care of the patient at this time and will follow the patient. Please refer to the emergency department record for history and examination from initial visit. Case was signed out to me. I reviewed all current vital signs which are stable. I reviewed all lab work. Patient is status post transurethral resection by prostate 1 week ago. Urine 1 week ago he was started on Bactrim. He finished it 3 to 4 days ago. The same day while starting the Bactrim he broke out with ulcerations to the inner aspect of his lower lip. 3 days ago he started with penile wounds with ulcerations and mild swelling. He saw his urologist Dr. Mcneil office today which remove the Wang catheter. Their office number is [phone]. Because of the wounds to the lip and to the glans penis and penile foreskin they were able to see a hand glove cleaner today which is Dr. Carrillo Lilly at phone number [phone]. They were prescribed a steroid cream to apply to the penis. Patient had 2 separate vasovagal reactions due to painful urination today. There are no bacteria in the urine. I did speak with the patient's urologist Dr. Mcneil who has agreed to see the patient tomorrow. I tried to get a hold of the hand glove cleaner, Dr. Rodney without success. Patient has no rash or cutaneous lesions. My worry is this could be early Moore-Ocle syndrome. Patient did receive Decadron 10 mg IV. He was given Dilaudid 1 mg IV and a 16 American Wang catheter was placed with blood-tinged urine. This was done so the patient will not have another vasovagal episode at home. Patient's vital signs are stable as his workup is. He has a follow-up with his urologist tomorrow. They are to call the hand glove cleaner to discuss the possibility of Moore-Cole syndrome even though there are no cutaneous wounds at this time. Patient to return to the emergency room as needed or if condition worsens.
[2025-04-22 19:10] LABS: Collection Type, Urine Clean Catch; Squamous Epithelial Cell,Urine 0 /hpf (0-5)
[2025-04-22 19:20] LABS: Amorphous Crystals,Urine Present (Absent); Bilirubin,Urine Negative (Negative); Blood,Urine 3+ (Negative); Clarity,Urine Turbid (Clear/Hazy); Color,Urine Brown (Lt Yel-Yel); Glucose, Urine 4+ (Negative); Ketones,Urine Trace (Negative); Leukocyte Esterase,Urine Positive (Negative); Nitrite,Urine Negative (Negative); PH,Urine 6.0 (5.0-7.0); Protein,Urine 1+ (Neg - Trace); RBC,Urine 4592 /hpf (0-3); Specific Gravity,Urine 1.009 (1.001-1.035); Urobilinogen,Urine Negative mg/dL (0.0-1.0); WBC,Urine 82 /hpf (0-5)
[2025-04-22 19:29] LABS: Culture Indicated,Urine Yes
[2025-04-22 19:34] VITALS: BP 117/84; PULSE 94; RESP 17; TEMP 36.8; O2SAT 99
--- NOTE | 2025-04-22 19:55 | XR_ITS ---
EXAMINATION: AP chest single view TECHNIQUE: AP portable upright chest single view Date and time: April 22, 20252002 hours, comparison June 14, 2024 INDICATION: Chest pain shortness of breath today. FINDINGS: Normal heart size Mild vascular congestion. No lobar pneumonia or pulmonary edema. IMPRESSION: Mild vascular congestion
[2025-04-22] MEDS: HYDROmorphone INJ 2 MG/ML VIAL 1 MG IVP (20:49)
[2025-04-22] MEDS: DEXAMETHASONE SOD PHOS INJ 10 MG/ML VIAL IVP (20:49)
[2025-04-22] MEDS: LIDOCAINE VISCOUS 2% 15 ML UDC TOP (20:50)
--- NOTE | 2025-04-22 21:19 | PD.EDADDENDU ---
Emergency Room Addendum Addendum Narrative: Due to the fact that the patient had syncope today an EKG was obtained at 6:33 PM which showed normal sinus rhythm at a rate of 93 without ischemic change or ectopy.
[2025-04-22 21:31] VITALS: BP 116/66; PULSE 76; RESP 16; TEMP 37.2; O2SAT 95
== END 2025-04-22 21:33 | disposition home or self-care (01) ==
PROVIDERS: Emergency Provider Emergency Medicine; PCP Family Medicine
DX: N48.5 Ulcer of penis (principal); R55 Syncope and collapse; N40.0 Benign prostatic hyperplasia without lower urinary tract symptoms; I10 Essential (primary) hypertension; E78.00 Pure hypercholesterolemia, unspecified; Z87.891 Personal history of nicotine dependence
CPT/HCPCS: 36415; 51702; 71045; 80053; 81001; 85025; 87086; 93005; 96361; 96374; 96375; 99284; A4314; J1100; J1171; J2060; J2405; J3490; J7030